=== PATIENT | female | born 1970 | race Two or more races ===

== ENCOUNTER 2019-09-29 06:40 | Inpatient (IN) | payer MEDICAID ==
[~2019-09-29] VITALS: Ht 162.6 cm; Wt 66.2 kg
[2019-09-29] MEDS ORDERED: SODIUM CHLORIDE 0.9% 1,000 ML IV ONE (07:49)
[2019-09-29] MEDS ORDERED: DOXYCYCLINE 100 MG TAB/CAP PO ONE (08:30)
[2019-09-29] MEDS ORDERED: cefTRIAXone 1GM/50ML D5W 50 ML IV ONE (08:30)
[2019-09-29 08:38] LABS: Basophils # (auto) 0 10 ^3/uL (0-0.2); Basophils % (auto) 0.4 % (0.0-2.0); Eosinophils # (auto) 0 10 ^3/uL (0-0.8); Hematocrit 32.7 % (36.0-46.0); Hemoglobin 10.7 g/dL (12.2-16.2); Lymphocytes # (auto) 0.4 10 ^3/uL (0.4-5.4); Lymphocytes % (auto) 7.8 % (10.0-50.0); Mean Corpuscular Hemoglobin 28.7 pg (28.0-32.0); Mean Corpuscular Hgb Conc. 32.7 g/dL (32.0-36.0); Mean Corpuscular Volume 87.9 fL (80.0-100.0); Monocytes # (auto) 0.3 10 ^3/uL (0-1.3); Monocytes % (auto) 6.3 % (0.0-12.0); Neutrophils # (auto) 4.2 10 ^3/uL (1.6-8.6); Neutrophils % (auto) 85.5 % (37.0-80.0); Platelet Count (auto) 163 10^3/uL (140-450); Red Blood Cells 3.72 10^6/uL (4.0-5.20); Red Cell Distribution Width 14.3 % (11.8-14.3); White Blood Cell 4.9 10^3/uL (4.4-10.8)
[2019-09-29 08:54] LABS: INR 0.92 (0.9-1.15)
[2019-09-29 08:57] LABS: Albumin 3.2 g/dL (3.4-5.0); BUN/Creatinine Ratio 5.4; Calcium 8.2 mg/dL (8.5-10.1); Potassium 4.8 mmol/L (3.5-5.1)
[2019-09-29 09:00] LABS: Bilirubin, Total 0.5 mg/dL (0.2-1.0); Total Protein 8.6 g/dL (6.4-8.2)
[2019-09-29] MEDS ORDERED: LORazepam 2MG/ML-1ML VIAL IV ONE (10:00)
[2019-09-29] MEDS ORDERED: ONDANSETRON HCL 4 MG/2 ML VIAL IV ONE (10:00)
[2019-09-29] MEDS ORDERED: NITROGLYCERIN 0.4 MG SL TAB SL PRN (10:15)
[2019-09-29] MEDS ORDERED: DOCUSATE SOD 100 MG CAP PO PRN (10:15)
[2019-09-29] MEDS ORDERED: CHOLECALCIFEROL (VITD3) 2,000 UNIT CAP PO ONE (10:15)
[2019-09-29] MEDS ORDERED: ACETAMINOPHEN 325 MG TAB PO PRN (10:15)
[2019-09-29] MEDS ORDERED: ALUM & MAG HYDROX-SIMETH LIQ(MAALOX) 30 ML PO PRN (10:15)
[2019-09-29] MEDS ORDERED: MORPHINE SULF INJ 2 MG/ML SYRINGE 1ML IV PRN (10:15)
[2019-09-29] MEDS ORDERED: ACETAMINOPHEN 500 MG TAB PO PRN (10:15)
[2019-09-29 11:25] LABS: Albumin 3.3 g/dL (3.4-5.0); Calcium 8.3 mg/dL (8.5-10.1); Magnesium 3.1 mg/dL (1.6-2.6); Potassium 4.8 mmol/L (3.5-5.1)
[2019-09-29 11:33] LABS: BUN/Creatinine Ratio 5.6; Bilirubin, Total 0.5 mg/dL (0.2-1.0); CRP High Sensitivity 12.3 mg/dL (< 0.3); Total Protein 8.7 g/dL (6.4-8.2)
[2019-09-29 11:39] LABS: Cholesterol 160 mg/dL (< 200); HDL Cholesterol 77 mg/dL (40-59); LDL Cholesterol 59 mg/dL (< 100); Triglycerides 142 mg/dL (< 150)
--- NOTE | 2019-09-29 11:50 | NUR ---
Telemetry admit from ER [facility] admitted to Telemetry unit after SBAR received. Patient oriented to Kacey Aguirre, primary RN, unit, room, bed, and unit policies regarding patient care and visiting hours. Patient now on continuous telemetry monitoring, tele box # 6 and telemetry reading on arrival to unit is SR. Patient placed on bedside oxygen at 2l as ordered via N/C. Pt weighed by bedscale and encouraged to call if they need something. All questions and concerns addressed, patient verbalized understanding. Patient noted very drowsy and lethargic but able to follow commands. 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 Patient unable to stay awake to answer all questions for admission. Will try again later. Fall precs in place will cont care.
[2019-09-29] MEDS: SEVELAMER 800 MG TAB PO SCH ×2 (12:17→17:41)
[2019-09-29] MEDS ORDERED: DEXTROSE (50%) 50ML SYRG IV PRN (12:30)
[2019-09-29 13:00] VITALS: BP 151/76
[2019-09-29] MEDS ORDERED: AMLO10TA13 PO (13:50)
[2019-09-29] MEDS ORDERED: MORP1TAB12 PO (13:50)
[2019-09-29] MEDS ORDERED: MET25T PO (13:50)
[2019-09-29] MEDS ORDERED: HYDR-531 PO (13:50)
[2019-09-29] MEDS ORDERED: LEVOTAB51 PO (13:50)
[2019-09-29] MEDS ORDERED: ONDA-144 PO (13:50)
[2019-09-29] MEDS: CLINDAMYCIN 600MG IV 50 ML IV SCH ×2 (14:00→21:27)
[2019-09-29] MEDS: ALBUTEROL SULF HFA 90MCG INH 200DOSE IN SCH ×3 (14:00→23:08)
--- NOTE | 2019-09-29 14:16 | NUR ---
Spoke to Dr Sanabria aware of patient's status including critical creat level. Awaiting Nephro consult from Dr. Velazco at this time. No new orders received. Cont care
[2019-09-29 16:55] VITALS: BP 149/68
[2019-09-29] MEDS: InsuLIN REG 1unit/0.01ml Soln (100units/ml) SC SCH ×2 (17:28→21:49)
[2019-09-29] MEDS: ACCU-CHEK COMFORT CURVE STRIP VI SCH ×2 (17:28→21:27)
--- NOTE | 2019-09-29 17:41 | NUR ---
RE: admission Admission assessment obtained from medical record. Adalberto, student home office claim specialist, attempted to contact next of kin. No answer. Patient unable to answer assessment questions via telephone. Admission interventions endorsed to Kacey, primary RN.
[2019-09-29] MEDS: FUROSEMIDE 20 MG/2 ML VIAL IV SCH (17:42)
--- NOTE | 2019-09-29 18:38 | NUR ---
Patient assisted to the bathroom and tolerated well. Patient self d/c'd IV accidentally with catheter intact. Will obtain new line. Patient states she's on "her period" and blood noted in toilet. Attempted to collect urine but pt was unable to provide sample at this time. New urine container and hat given to patient and instructed to provide sample as soon as she can go again she verbalized understanding. Patient back in bed with fall precs in place per protocol including bed alarm on at all times.
[2019-09-29] MEDS: MORPHINE SULF INJ 2 MG/ML SYRINGE 1ML IV PRN ×2 (19:08→20:15)
[2019-09-29] MEDS: HYDROcodone-ACET 5/325MG TAB PO PRN (19:14)
--- NOTE | 2019-09-29 19:15 | NUR ---
Patient care endorsed to Cynthia cardona. Patient medicated with [place] as ordered and rn will obtain new peripheral line. No distress or sob noted at this time. Pt continues to "accidentally" remove leads on tele monitor and removing her oxygen. Encouraged to keep leads on and oxygen n/c she verbalized understanding and states she's "sorry" and will try not to again. Call light within reach. Awaiting UA sample. Patient Home med bag given to Cynthia cardona.
[2019-09-29 19:23] VITALS: BP 149/68
--- NOTE | 2019-09-29 19:47 | NUR ---
IV insertion IV access obtained, via clean sterile technique by inserting 22 gauge catheter at right hand after 1 attempt. IV secured properly. No trauma to site. Patient tolerated procedure well.
--- NOTE | 2019-09-29 20:00 | NUR ---
Patient refused heparin stating that she gets heparin only once every month. Said that if she were to take it now that it would make her right eye bleed. Addendum: 09/29/19 at 2207 by NALDO ARMENTA RN Patient refused heparin at 2200 not 1999.
--- NOTE | 2019-09-29 20:22 | NUR ---
Patient asked for pain medication. I notified her that she has morphine available and agreed. Once i brought medication to room she stated i wont take morphine because it makes me nauseous. She then went on to say that when i come to the hospital i normally take dilaudid. Will page hospitalist for additional pain management.
[2019-09-29] MEDS: LORazepam 0.5 MG TAB PO PRN (20:50)
--- NOTE | 2019-09-29 21:14 | NUR ---
Hospitalist denied patient request for dilaudid. Will continue to monitor patient pain levels.
[2019-09-29] MEDS: HEPARIN SODIUM (PORCINE) 5000 UNITS/ML 1ML VIAL SC SCH ×2 (21:28→22:00)
[2019-09-29] MEDS: ONDANSETRON HCL 4 MG/2 ML VIAL IV PRN (21:38)
[2019-09-29 22:00] VITALS: BP 142/60
--- NOTE | 2019-09-29 23:00 | NUR ---
Patient had one bought of vomiting. It was mostly undigested dinner. Patient states she feels better. She does not want any medication at this time. Will continue to monitor.
[2019-09-29] MEDS: DOXYCYCLINE 100MG/250ML 250 ML IV SCH (23:02)
[2019-09-30] VITALS (7 sets, daily range): BP systolic 135–160; BP diastolic 53–88
[2019-09-30] MEDS: CLINDAMYCIN 600MG IV 50 ML IV SCH (06:20)
[2019-09-30] MEDS: FUROSEMIDE 20 MG/2 ML VIAL IV SCH ×2 (06:21→17:45)
[2019-09-30] MEDS: ACCU-CHEK COMFORT CURVE STRIP VI SCH ×4 (06:35→22:00)
[2019-09-30] MEDS: InsuLIN REG 1unit/0.01ml Soln (100units/ml) SC SCH ×4 (06:49→22:00)
[2019-09-30] MEDS: HYDROcodone-ACET 5/325MG TAB PO PRN ×3 (06:52→20:49)
[2019-09-30] MEDS: ALBUTEROL SULF HFA 90MCG INH 200DOSE IN SCH ×3 (07:10→21:15)
[2019-09-30] MEDS: SEVELAMER 800 MG TAB PO SCH ×3 (08:00→17:45)
[2019-09-30 08:42] LABS: Basophils # (auto) 0 10 ^3/uL (0-0.2); Basophils % (auto) 0.4 % (0.0-2.0); Eosinophils # (auto) 0 10 ^3/uL (0-0.8); Eosinophils % (auto) 0.2 % (0.0-7.0); Hematocrit 30.3 % (36.0-46.0); Lymphocytes # (auto) 0.6 10 ^3/uL (0.4-5.4); Lymphocytes % (auto) 10.7 % (10.0-50.0); Mean Corpuscular Volume 87.8 fL (80.0-100.0); Monocytes # (auto) 0.4 10 ^3/uL (0-1.3); Monocytes % (auto) 7.2 % (0.0-12.0); Neutrophils # (auto) 4.6 10 ^3/uL (1.6-8.6); Neutrophils % (auto) 81.5 % (37.0-80.0); Nucleated Red Blood Cells % 0.2 %; Platelet Count (auto) 182 10^3/uL (140-450); Red Blood Cells 3.46 10^6/uL (4.0-5.20); Red Cell Distribution Width 14.4 % (11.8-14.3); White Blood Cell 5.7 10^3/uL (4.4-10.8)
[2019-09-30 08:47] LABS: Albumin 2.8 g/dL (3.4-5.0); Calcium 7.8 mg/dL (8.5-10.1); Magnesium 2.6 mg/dL (1.6-2.6); Potassium 4.8 mmol/L (3.5-5.1)
[2019-09-30 08:50] LABS: BUN/Creatinine Ratio 5.8; Bilirubin, Total 0.5 mg/dL (0.2-1.0); Phosphorus 5.3 mg/dL (2.5-4.90); Total Protein 7.6 g/dL (6.4-8.2)
--- NOTE | 2019-09-30 08:59 | NUR ---
CRITICAL LAB Received critical Creatinine lab of 11.3. Left message with Dr Velazco's office of lab value.
[2019-09-30 09:27] LABS: INR 0.93 (0.9-1.15); Partial Thromboplastin Time 29.7 sec (23.0-31.2)
--- NOTE | 2019-09-30 09:40 | NUR ---
Received call from Dr Craig, informed him of patients creatinine of 11.3. Dr Craig will be in to see patient this afternoon. No orders received.
[2019-09-30] MEDS: DOXYCYCLINE 100MG/250ML 250 ML IV SCH ×2 (09:41→21:59)
[2019-09-30] MEDS: DexAMETHasone SOD PHOS 10MG/1ML VIAL INJ IV SCH (09:41)
[2019-09-30] MEDS: ASCORBIC ACID 1,000 MG TAB PO SCH (09:42)
[2019-09-30] MEDS: HEPARIN SODIUM (PORCINE) 5000 UNITS/ML 1ML VIAL SC SCH ×2 (09:42→21:59)
[2019-09-30] MEDS: ZINC SULFATE 220mg CAP or TAB PO SCH (09:42)
[2019-09-30] MEDS: CHOLECALCIFEROL (VITD3) 2,000 UNIT CAP PO SCH (09:42)
[2019-09-30] MEDS ORDERED: CHOLECALCIFEROL (VITD3) 2,000 UNIT CAP PO SCH (10:00)
[2019-09-30] MEDS: ONDANSETRON HCL 4 MG/2 ML VIAL IV PRN ×2 (10:02→20:49)
[2019-09-30] MEDS ORDERED: ENOXAPARIN SOD 80 MG/0.8ML SYRINGE SC ONE (12:45)
--- NOTE | 2019-09-30 12:45 | NUR ---
Informed Dr Holman of patients large blood clots and heavy period. Orders received and carried out
--- NOTE | 2019-09-30 13:20 | NUR ---
Dr Whyte bedside with patient. Orders received and carried out
[2019-09-30] MEDS: LORazepam 0.5 MG TAB PO PRN (14:01)
[2019-09-30 14:36] LABS: Urine Bacteria None Seen /hpf (None Seen)
[2019-09-30 14:59] LABS: Alcohol, Urine < 3.0 mg/dL (0-10); Amphetamine Screen, Urine NEGATIVE (NEGATIVE); Barbiturate Scree,Urine NEGATIVE (NEGATIVE); Benzodiazephine Screen, Urine NEGATIVE (NEGATIVE); Cannabinoid Screen, Urine NEGATIVE (NEGATIVE); Cocaine Screen, Urine NEGATIVE (NEGATIVE); Opiate Scree,Urine NEGATIVE (NEGATIVE); Phencyclidine Screen, Urine NEGATIVE (NEGATIVE)
[2019-09-30 15:17] LABS: Urine Specific Gravity 1.017 (1.001-1.035)
[2019-09-30 15:18] LABS: Urine Blood 3+ /uL (Negative)
[2019-09-30 15:19] LABS: Urine WBC 0-3 /hpf (0 - 5)
--- NOTE | 2019-09-30 16:00 | NUR ---
Dialysis Dialysis complete, 2 L removed. Patient VS 162/82, 76, 20, 91%, 97.8. Will continue to monitor
[2019-09-30] MEDS: cefTRIAXone 1GM/50ML D5W 50 ML IV SCH (18:21)
[2019-09-30] MEDS ORDERED: cefTRIAXone 1GM/50ML D5W 50 ML IV ONE (18:21)
--- NOTE | 2019-09-30 19:40 | NUR ---
Opening Shift Note Assumed care of patient, awake and alert X4. No S/S of distress/SOB or pain. Oxygen at 12 L/min via Oxymizer. Call light is within reach, side rails up x2, bed is in the lowest position. Instructed on POC and to call for assist PRN, will continue to monitor for changes Q1hr and PRN.
[2019-09-30] MEDS ORDERED: EPOETIN ALFA 4,000 UNIT/ML VL IV ONE (21:00)
--- NOTE | 2019-09-30 21:00 | NUR ---
Patient refused 2100 Epogen medication. Patient stated, "I don't anything I don't know." This RN explained the usage of the medication and the risks and benefits of not taking it, patient verbalized understanding and continued to refuse.
--- NOTE | 2019-09-30 22:00 | NUR ---
Patient refused 2200 heparin stating, "I have already taking it and I am not taking it again." Medication held.
--- NOTE | 2019-09-30 23:13 | NUR ---
IV removal, IV infiltrated to RAC IV DC'd with clean sterile technique, catheter fully intact. Pressure dressing applied to site. Patient tolerated well.
--- NOTE | 2019-09-30 23:13 | NUR ---
IV Vibramycin infused half way before the IV infiltrated. IV attempted once, patient is now refusing new IV at this time. Explained to the patient the benefits of completing the antibiotic therapy, she verbalized understanding and said try again at a later time.
[2019-10-01] MEDS: HYDROcodone-ACET 5/325MG TAB PO PRN ×3 (00:49→19:55)
--- NOTE | 2019-10-01 00:49 | NUR ---
Patient is complaining of pain all over, 10/0-10, norco administered, patient is refusing morphine. Will reassess.
--- NOTE | 2019-10-01 03:48 | NUR ---
IV insertion to right hand IV access obtained, via clean sterile technique by inserting 22 gauge catheter at right hand after 3 attempt(s). IV secured properly. No trauma to site. Patient tolerated well.
[2019-10-01] MEDS: ONDANSETRON HCL 4 MG/2 ML VIAL IV PRN ×2 (03:53→10:05)
--- NOTE | 2019-10-01 03:53 | NUR ---
Zofran administered, patient is complaining odf nausea, will reassess.
[2019-10-01 05:00] VITALS: BP 154/74
[2019-10-01] MEDS: ACCU-CHEK COMFORT CURVE STRIP VI SCH ×4 (06:31→21:32)
[2019-10-01] MEDS: FUROSEMIDE 20 MG/2 ML VIAL IV SCH ×2 (06:31→17:38)
[2019-10-01] MEDS: InsuLIN REG 1unit/0.01ml Soln (100units/ml) SC SCH ×4 (06:35→21:35)
[2019-10-01] MEDS: ALBUTEROL SULF HFA 90MCG INH 200DOSE IN SCH ×3 (07:26→22:21)
[2019-10-01 08:00] VITALS: BP 168/78
[2019-10-01] MEDS: SEVELAMER 800 MG TAB PO SCH ×3 (08:16→17:37)
[2019-10-01] MEDS: cefTRIAXone 1GM/50ML D5W 50 ML IV SCH (08:17)
[2019-10-01 09:00] VITALS: BP 168/78
--- NOTE | 2019-10-01 09:45 | NUR ---
Patient refusing Heparin Patient refused SC Heparin. Benefits of Heparin explained to patient, patient said "I will not take that stuff". Will notify MD of patient refusal.
[2019-10-01] MEDS: ZINC SULFATE 220mg CAP or TAB PO SCH (09:48)
[2019-10-01] MEDS: DexAMETHasone SOD PHOS 10MG/1ML VIAL INJ IV SCH (09:48)
[2019-10-01] MEDS: ASCORBIC ACID 1,000 MG TAB PO SCH (09:48)
[2019-10-01] MEDS: DOXYCYCLINE 100MG/250ML 250 ML IV SCH ×2 (09:48→21:32)
[2019-10-01] MEDS: CHOLECALCIFEROL (VITD3) 2,000 UNIT CAP PO SCH (09:49)
[2019-10-01] MEDS: HEPARIN SODIUM (PORCINE) 5000 UNITS/ML 1ML VIAL SC SCH ×2 (09:49→21:32)
[2019-10-01] MEDS ORDERED: ENOXAPARIN SOD 80 MG/0.8ML SYRINGE SC SCH (10:00)
[2019-10-01] MEDS: LORazepam 0.5 MG TAB PO PRN ×2 (10:43→21:16)
--- NOTE | 2019-10-01 11:26 | NUR ---
Dr Whyte on unit.
[2019-10-01 13:00] VITALS: BP 152/66
--- NOTE | 2019-10-01 13:20 | NUR ---
Midline Placement: Patient educated on need for midline placement. All risks and benefits explained and all questions and concerns addresses prior to procedure. 18g/10cm midline inserted via RIGHT BASILIC vein using Ultrasound. Sterile technique utilized. Blood return obtained from SINGLE lumen and flushed easily with NS using proper technique. Midline secured with saline lock; biodisc and occlusive dressing applied. Primary RN notified. Midline lot # [id number].
--- NOTE | 2019-10-01 13:30 | NUR ---
Dr Holman bedside with patient discussing plan of care. Informed MD of patients refusal of SC Heparin.
[2019-10-01 16:53] VITALS: BP 158/75
--- NOTE | 2019-10-01 19:55 | NUR ---
Opening Shift Note Assumed care of patient, awake and alert. No S/S of distress/SOB noted. Bed is in lowest locked position with bed rails up x2 and call light is within reach of the patient. Instructed on POC and to call for assist PRN.
--- NOTE | 2019-10-01 21:10 | NUR ---
Patient non compliant: Patient non compliant with Oxymizer oxygen. Educated patient to keep her 6 liters Oxymizer on nose to be adequately oxygenated. Patient stated "Oh I didn't know, okay Ill put it back on." Placed Oxymizer back on patient. Educated patient about the need for to keep oxygen on and the risks of not having oxygen. After leaving room patient had pulled oxygen off and had to reapply again. Patient reeducated.
--- NOTE | 2019-10-01 21:30 | NUR ---
Patient refusing Heparin Patient refused SC Heparin. Benefits of Heparin explained to patient and the risks patient still refusing heparin at this time.
[2019-10-01] MEDS: INSULIN LANTUS (GLARGINE) 1 /0.01ml (100units/ml) SC SCH (21:36)
[2019-10-01 22:00] VITALS: BP 158/68
--- NOTE | 2019-10-01 23:00 | NUR ---
Patient non compliant: Patient non compliant with Oxymizer oxygen. Educated patient to keep her 6 liters Oxymizer on nose to be adequately oxygenated. Patient keep pulling oxygen off despite education of the risks and benefits of having it off. Patient is reeducated but pulls of oxygen the moment RN leaves room. Reapplied oxygen before leaving room.
[2019-10-02] VITALS (7 sets, daily range): BP systolic 148–175; BP diastolic 60–84
--- NOTE | 2019-10-02 02:15 | NUR ---
Patient non compliant: Patient non compliant with Oxymizer oxygen. Educated patient to keep her 6 liters Oxymizer on nose to be adequately oxygenated. Patient keep pulling oxygen off despite education of the risks and benefits of having it off. Reapplied Oxymizer. Patient verbalized understanding.
[2019-10-02] MEDS: HYDROcodone-ACET 5/325MG TAB PO PRN ×3 (04:47→20:53)
[2019-10-02] MEDS: FUROSEMIDE 20 MG/2 ML VIAL IV SCH ×2 (05:45→17:08)
[2019-10-02] MEDS: LORazepam 0.5 MG TAB PO PRN ×3 (05:52→22:21)
[2019-10-02] MEDS: ACCU-CHEK COMFORT CURVE STRIP VI SCH ×4 (06:19→21:54)
[2019-10-02] MEDS: InsuLIN REG 1unit/0.01ml Soln (100units/ml) SC SCH ×4 (06:32→22:20)
[2019-10-02] MEDS ORDERED: SODIUM CHL 0.9% 1000 ML BAG XX ONE (07:00)
--- NOTE | 2019-10-02 07:06 | NUR ---
Patient anxious to leave AMA: Patient is anxious to leave AMA insisting that she leaves the hospital and calling family members. Educated the patient about the risks of leaving AMA and the benefits of staying in the hospital. Patient verbalized understanding but still would like to leave AMA. Will notify Day nurse.
[2019-10-02] MEDS: ALBUTEROL SULF HFA 90MCG INH 200DOSE IN SCH ×3 (07:29→23:45)
--- NOTE | 2019-10-02 08:00 | NUR ---
Patients sister, Talya, called and said she is not picking up the patient. She has talked to the patient, and patient understands she will be staying.
--- NOTE | 2019-10-02 08:10 | NUR ---
AMA Patient is agreeing to stay in the hospital and will not leave AMA at this time.
[2019-10-02] MEDS: SEVELAMER 800 MG TAB PO SCH ×3 (08:12→17:08)
[2019-10-02] MEDS: cefTRIAXone 1GM/50ML D5W 50 ML IV SCH (08:49)
[2019-10-02] MEDS: HEPARIN SODIUM (PORCINE) 5000 UNITS/ML 1ML VIAL SC SCH ×2 (10:00→21:54)
[2019-10-02] MEDS: DexAMETHasone SOD PHOS 10MG/1ML VIAL INJ IV SCH (10:03)
[2019-10-02] MEDS: DOXYCYCLINE 100MG/250ML 250 ML IV SCH ×2 (10:03→22:19)
[2019-10-02] MEDS: ZINC SULFATE 220mg CAP or TAB PO SCH (10:04)
[2019-10-02] MEDS: ASCORBIC ACID 1,000 MG TAB PO SCH (10:04)
[2019-10-02] MEDS: CHOLECALCIFEROL (VITD3) 2,000 UNIT CAP PO SCH (10:05)
--- NOTE | 2019-10-02 10:08 | NUR ---
Patient refusing Heparin Patient is refusing SC Heparin. Education was provided to patient but patient has still refused.
[2019-10-02 11:22] LABS: Basophils # (auto) 0 10 ^3/uL (0-0.2); Eosinophils # (auto) 0 10 ^3/uL (0-0.8); Lymphocytes # (auto) 0.6 10 ^3/uL (0.4-5.4); Neutrophils # (auto) 4.1 10 ^3/uL (1.6-8.6); Red Cell Distribution Width 14.2 % (11.8-14.3)
[2019-10-02 11:24] LABS: Basophils % (auto) 0.4 % (0.0-2.0); Eosinophils % (auto) 0.1 % (0.0-7.0); Hematocrit 24.8 % (36.0-46.0); Hemoglobin 8.4 g/dL (12.2-16.2); Lymphocytes % (auto) 11.2 % (10.0-50.0); Mean Corpuscular Hemoglobin 29.5 pg (28.0-32.0); Mean Corpuscular Hgb Conc. 33.9 g/dL (32.0-36.0); Mean Corpuscular Volume 87.1 fL (80.0-100.0); Monocytes # (auto) 0.6 10 ^3/uL (0-1.3); Monocytes % (auto) 11.4 % (0.0-12.0); Neutrophils % (auto) 76.9 % (37.0-80.0); Platelet Count (auto) 264 10^3/uL (140-450); Red Blood Cells 2.84 10^6/uL (4.0-5.20); White Blood Cell 5.3 10^3/uL (4.4-10.8)
[2019-10-02 11:34] LABS: Potassium 4.6 mmol/L (3.5-5.1)
[2019-10-02 11:36] LABS: BUN/Creatinine Ratio 7.8
--- NOTE | 2019-10-02 12:05 | NUR ---
Dr Tomas bedside with patient.
--- NOTE | 2019-10-02 14:22 | NUR ---
Nutrition Assessment Note please see attached link for complete assessment [employer] needs BW [id number] kcals (27-30 kcal/kgBW), Est Protein needs: 78-91 gms/day (1.2-1.4 gm/kgBW r/t HD). Will continue to monitor and reassess prn. Addendum: 10/02/19 at [address] Amended: Links added.
--- NOTE | 2019-10-02 14:51 | NUR ---
Found pt with oxymizer off, SPO2 86% on room air. Asked pt to place oxymizer back on, pt said "I just finished dialysis, the nurse is about to give me medications, I haven't eaten yet. I don't want to wear it right now." Provided education, pt says she understands but will put it back on after medications. Pt refusing inhaler MDI treatments at this time. Pt appears to be resting comfortably in bed, no s/s of distress. RN at bedside.
--- NOTE | 2019-10-02 19:45 | NUR ---
Opening Shift Note Assumed care of patient, awake and alert. No S/S of distress/SOB noted. Bed is in lowest locked position with bed rails up x2 and call light is within reach of the patient. Instructed on POC and to call for assist PRN. Patient had Oxymizer off upon entering room. Reeducated the patient and placed back on Oxymizer.
--- NOTE | 2019-10-02 20:47 | NUR ---
PATIENT REFUSED EPOGEN: Patient refusing scheduled Epogen medication stating "No Im not taking that. Im not taking that medication because i dont know what that is and its not prescribed by my [facility]. Im only taking what is prescribed by my [facility]." Educated the patient about the risks, benefits and purpose of receiving Epogen after dialysis. Patient verbalized understanding but still refuses at this time.
[2019-10-02] MEDS ORDERED: EPOETIN ALFA 4,000 UNIT/ML VL SC ONE (21:00)
--- NOTE | 2019-10-02 21:55 | NUR ---
Patient refusing Heparin Patient refused SC Heparin. Benefits of Heparin explained to patient and the risks patient still refusing heparin at this time.
[2019-10-02] MEDS: INSULIN LANTUS (GLARGINE) 1 /0.01ml (100units/ml) SC SCH (22:20)
--- NOTE | 2019-10-02 23:39 | NUR ---
Elevated blood pressure: Patients blood pressure was elevated at 175/74, heart rate 69. Blood pressure reassessed and was 171/86, heart rate 64 at this time. No PRN's available. Will call and notify hospitalist.
[2019-10-03] VITALS (7 sets, daily range): BP systolic 142–182; BP diastolic 62–88
--- NOTE | 2019-10-03 | NUR ---
David ruth: David graham regarding elevated blood pressure. Waiting for call back. Addendum: 10/03/19 at 0609 by Gretchen Craig RN RN Spelling error: David graham:
--- NOTE | 2019-10-03 00:06 | NUR ---
Hospitalist called back: Updated about elevated blood pressure and lack of PRN blood pressure medications. New orders received. To place orders. Addendum: 10/03/19 at 0008 by Gretchen Craig RN RN edit: [facility] called back.
[2019-10-03] MEDS: cloNIDine HCL 0.1 MG TAB PO PRN ×2 (00:12→13:20)
[2019-10-03] MEDS: HYDROcodone-ACET 5/325MG TAB PO PRN ×4 (00:53→20:47)
--- NOTE | 2019-10-03 05:45 | NUR ---
Elevated blood pressure: Patients blood pressure was elevated at 168/72, heart rate 57. No PRN's available at this time. Will call and notify hospitalist.
--- NOTE | 2019-10-03 06:07 | NUR ---
David ruth: David graham regarding elevated blood pressure. Waiting for call back. Addendum: 10/03/19 at 0726 by Gretchen Craig RN RN Spelling error: Fabiano graham
[2019-10-03] MEDS: InsuLIN REG 1unit/0.01ml Soln (100units/ml) SC SCH ×4 (06:13→22:07)
[2019-10-03] MEDS: FUROSEMIDE 20 MG/2 ML VIAL IV SCH ×2 (06:13→17:49)
[2019-10-03] MEDS: ACCU-CHEK COMFORT CURVE STRIP VI SCH ×4 (06:13→22:04)
[2019-10-03] MEDS: LORazepam 0.5 MG TAB PO PRN ×2 (06:34→20:46)
[2019-10-03] MEDS: ALBUTEROL SULF HFA 90MCG INH 200DOSE IN SCH ×3 (07:10→22:44)
--- NOTE | 2019-10-03 07:26 | NUR ---
Closing note: Care endorsed to Day shift nurse, notified of elevated blood pressure.
[2019-10-03] MEDS: SEVELAMER 800 MG TAB PO SCH ×3 (08:00→17:48)
[2019-10-03 08:41] LABS: Hematocrit 25.8 % (36.0-46.0); Hemoglobin 8.5 g/dL (12.2-16.2); Mean Corpuscular Hgb Conc. 32.8 g/dL (32.0-36.0); Mean Corpuscular Volume 88.6 fL (80.0-100.0); Platelet Count (auto) 329 10^3/uL (140-450); Red Blood Cells 2.91 10^6/uL (4.0-5.20); Red Cell Distribution Width 14.1 % (11.8-14.3); White Blood Cell 7.5 10^3/uL (4.4-10.8)
[2019-10-03 08:58] LABS: Band Neutrophils % (manual) 0; Basophils % (manual) 0 (0.0-2.0); Blast Cells 0; Eosinophils % (manual) 0 (0-7); Myelocytes % 0; Promyelocytes % 0; Reactive Lymphocytes 0
[2019-10-03 08:59] LABS: Albumin 2.5 g/dL (3.4-5.0); Calcium 7.8 mg/dL (8.5-10.1); Potassium 4.9 mmol/L (3.5-5.1)
[2019-10-03 09:04] LABS: BUN/Creatinine Ratio 7.8; Bilirubin, Total 0.3 mg/dL (0.2-1.0); Total Protein 7.1 g/dL (6.4-8.2)
[2019-10-03] MEDS: DexAMETHasone SOD PHOS 10MG/1ML VIAL INJ IV SCH (09:08)
[2019-10-03] MEDS: ZINC SULFATE 220mg CAP or TAB PO SCH (09:08)
[2019-10-03] MEDS: cefTRIAXone 1GM/50ML D5W 50 ML IV SCH (09:08)
[2019-10-03] MEDS: ASCORBIC ACID 1,000 MG TAB PO SCH (09:08)
[2019-10-03] MEDS: HEPARIN SODIUM (PORCINE) 5000 UNITS/ML 1ML VIAL SC SCH ×2 (09:09→22:00)
[2019-10-03] MEDS: CHOLECALCIFEROL (VITD3) 2,000 UNIT CAP PO SCH (09:09)
[2019-10-03 09:21] LABS: Lymphocytes % (manual) 18 (10.0-50.0); Metamyelocytes % 1; Monocytes % (manual) 14 (0-12)
[2019-10-03] MEDS: DOXYCYCLINE 100MG/250ML 250 ML IV SCH ×2 (10:35→22:04)
[2019-10-03] MEDS ORDERED: NIFEdipine ER 30 MG TAB PO ONE (13:45)
--- NOTE | 2019-10-03 20:30 | NUR ---
SPOKE WITH PATIENTS MOTHER EXPLAINED TO HER THERE ARE NO ORDERS FOR DISCHARGE AT THIS TIME.
--- NOTE | 2019-10-03 20:47 | NUR ---
PATIENT COMPLAINS OF 10/10 PAIN, MORPHINE 2MG WAS OFFERED AT THIS TIME, PER PATIENTS REQUEST SHE WANTS NORCO 5. NORCO 5 WAS GIVEN. WILL CONTINUE TO MONITOR.
[2019-10-03] MEDS: INSULIN LANTUS (GLARGINE) 1 /0.01ml (100units/ml) SC SCH (22:06)
[2019-10-04] MEDS: LORazepam 0.5 MG TAB PO PRN (04:28)
[2019-10-04] MEDS: HYDROcodone-ACET 5/325MG TAB PO PRN (04:29)
[2019-10-04 05:00] VITALS: BP 149/62
[2019-10-04] MEDS: FUROSEMIDE 20 MG/2 ML VIAL IV SCH (06:00)
[2019-10-04] MEDS: ACCU-CHEK COMFORT CURVE STRIP VI SCH ×2 (06:42→12:35)
[2019-10-04] MEDS: InsuLIN REG 1unit/0.01ml Soln (100units/ml) SC SCH ×2 (06:48→11:30)
[2019-10-04 09:00] VITALS: BP 154/79
[2019-10-04] MEDS: DexAMETHasone SOD PHOS 10MG/1ML VIAL INJ IV SCH (09:09)
[2019-10-04] MEDS: cefTRIAXone 1GM/50ML D5W 50 ML IV SCH (09:09)
[2019-10-04] MEDS: SEVELAMER 800 MG TAB PO SCH ×2 (09:09→12:34)
[2019-10-04] MEDS: ASCORBIC ACID 1,000 MG TAB PO SCH (09:09)
[2019-10-04] MEDS: CHOLECALCIFEROL (VITD3) 2,000 UNIT CAP PO SCH (09:09)
[2019-10-04] MEDS: ZINC SULFATE 220mg CAP or TAB PO SCH (09:09)
[2019-10-04] MEDS: HEPARIN SODIUM (PORCINE) 5000 UNITS/ML 1ML VIAL SC SCH (09:10)
[2019-10-04] MEDS ORDERED: NIFEdipine ER 30 MG TAB PO SCH (10:00)
[2019-10-04] MEDS: DOXYCYCLINE 100MG/250ML 250 ML IV SCH (10:50)
[2019-10-04 13:00] VITALS: BP 159/102
[2019-10-04 14:09] VITALS: BP 154/79
--- NOTE | 2019-10-04 14:54 | NUR ---
DISCHARGE INSTRUCTIONS PROVIDED TO PT. PT VERBALIZED UNDERSTANDING FOR CONTINUATION OF HOME MEDICATIONS AND PRESCRIPTION ORDERS AND FOLLOW UP APPOINTMENT WITH PRIMARY CARE PHYSICIAN. EDUCATIONAL MATERIAL ON COVID + Dx AND PRECAUTION WHILE AT HOME DISCUSSED AND REVIEWED WITH PT. ALL QUESTIONS AND CONCERNS ADDRESSED. IV CATHETER DC TO [employer] CATHETER INTACT, NO PHLEBITIS, NO COMPLICATIONS. TELE BOX REMOVED AND RETURNED TO TELE DEPT. PT SAFELY ESCORTED OUT OF UNIT VIA WHEELCHAIR. NO S/S OF DISTRESS.
[2019-10-05] MEDS ORDERED: SODIUM CHL 0.9% 1000 ML BAG XX ONE (07:00)
== END 2019-10-04 15:00 | disposition home or self-care (01) | DRG 137 ==
LOC: ER 06:40 → EDBD 06:40 → TELE 06:41 → TELE-EAST 12:00 → EAST 10-02 16:37
PROVIDERS: ADMIT Hospitalist; ATTEND Internal Medicine
PROC: 5A1D70Z Performance of Urinary Filtration, Intermittent, Less than 6 Hours Per Day (ICD-10-PCS; principal; 2019-09-30)
PROC: 05HB33Z Insertion of Infusion Device into Right Basilic Vein, Percutaneous Approach (ICD-10-PCS; 2019-10-01)
PROC: 5A1D70Z Performance of Urinary Filtration, Intermittent, Less than 6 Hours Per Day (ICD-10-PCS; 2019-10-02)
DX: U07.1 COVID-19 (principal); J96.01 Acute respiratory failure with hypoxia; N18.6 End stage renal disease; J12.89 Other viral pneumonia; E11.65 Type 2 diabetes mellitus with hyperglycemia; Z99.2 Dependence on renal dialysis; H54.8 Legal blindness, as defined in USA; F41.9 Anxiety disorder, unspecified; D63.1 Anemia in chronic kidney disease; E11.22 Type 2 diabetes mellitus with diabetic chronic kidney disease; I13.2 Hypertensive heart and chronic kidney disease with heart failure and with stage 5 chronic kidney disease, or end stage renal disease; E87.1 Hypo-osmolality and hyponatremia; N93.9 Abnormal uterine and vaginal bleeding, unspecified; F32.9 Major depressive disorder, single episode, unspecified; Z79.4 Long term (current) use of insulin; Z87.891 Personal history of nicotine dependence; Z88.0 Allergy status to penicillin; I50.9 Heart failure, unspecified
CPT/HCPCS: 36415; 36600; 71045; 80048; 80053; 80061; 80307; 81001; 81025; 82728; 82805; 82962; 83036; 83605; 83615; 83735; 83880; 84100; 84443; 84484; 85007; 85025; 85027; 85379; 85610; 85730; 86141; 87040; 87081; 93970; 94640; 94760; 99291; G0378; J0696; J1100; J1815; J2405; J3490